=== PATIENT | female | born 1980 | race Two or more races ===

== ENCOUNTER 2017-10-25 11:01 | Emergency (ER) | payer MEDICAID ==
[~2017-10-25] VITALS: Ht 167.6 cm; Wt 89.4 kg
[2017-10-25 11:01] VITALS: BP 128/77
--- NOTE | 2017-10-25 11:08 | Emergency Room Report ---
History of Present Illness General Chief Complaint: Chest Pain Source: Patient, EMS Present Illness HPI Patient is a 36-year-old female presented after increased left-sided arm pain and chest discomfort. Patient states this felt like her prior myocardial infarction approximately 2 months ago. Patient had previous stent placement at [facility]. Onset of symptoms approximate 45 minutes ago. The patient states that she had been taking aspirin and Plavix and the statin. The patient previous been seen by EMS and an aspirin Allergies: Coded Allergies: No Known Allergies (Unverified , 10/25/17) Patient History Past Medical History: see triage record Now: No Reviewed Nursing Documentation: PMH: Agreed; PSxH: Agreed Review of Systems All Other Systems: negative except mentioned in HPI Physical Exam Vital Signs Date Time Temp Pulse Resp B/P (MAP) Pulse Ox O2 Delivery O2 Flow Rate FiO2 10/25/17 10:51 97.1 98 18 109/62 98 Room Air 97.2 Sp02 EP Interpretation: reviewed, normal General Appearance: normal inspection, well appearing, no apparent distress, alert, GCS 15 Head: atraumatic ENT: normal ENT inspection, hearing grossly normal, normal voice Neck: normal inspection, full range of motion, supple, no bony tend Respiratory: normal inspection, lungs clear, normal breath sounds, no respiratory distress, no retraction, no wheezing Cardiovascular #1: regular rate, rhythm, no edema Gastrointestinal: normal inspection, normal bowel sounds, non tender, soft, no guarding, no hernia Genitourinary: no CVA tenderness Musculoskeletal: normal inspection, back normal, normal range of motion Neurologic: normal inspection, alert, oriented x3, responsive, record label intern III-XII nml as tested, motor strength/tone normal, speech normal Psychiatric: normal inspection, judgement/insight normal, mood/affect normal Skin: normal inspection, normal color, no rash Medical Decision Making Diagnostic Impression: Primary Impression: Chest pain Additional Impression: ACS (acute coronary syndrome) ER Course patient presented for chest pain.Differential diagnosis included but was not limited to acute coronary syndrome, pulmonary embolism, pneumonia, aortic dissection, shingles, pneumothorax, aortic dissection, esophageal rupture, pericarditis. Because of complexity of patient's case laboratory testing and imaging studies were ordered.EKG interpreted by me showed ST segment elevation in the septal leads consistent with possible septal [place]. The patient was noted to have continued pain to the left upper extremity. The patient is given a heparin bolus.The initial EKG by paramedics as showed no elevation of the ST segments. Subsequent repeat EKG showed slight elevation of the ST . Patient had taken ASA with EMS as well as plavix. She was bolused IV heparin. The patient was discussed with Dr. Glaser at [facility] who agreed to accept the patient in transfer for higher level of care. Labs Test 10/25/17 11:04 White Blood Count 9.7 K/UL (4.8-10.8) Red Blood Count 4.79 M/UL (4.20-5.40) Hemoglobin 11.0 G/DL (12.0-16.0) Hematocrit 34.8 % (37.0-47.0) Mean Corpuscular Volume 73 FL (80-99) Mean Corpuscular Hemoglobin 22.9 PG (27.0-31.0) Mean Corpuscular Hemoglobin Concent 31.5 G/DL (32.0-36.0) Red Cell Distribution Width 14.1 % (11.6-14.8) Platelet Count 335 K/UL (150-450) Mean Platelet Volume 7.8 FL (6.5-10.1) Neutrophils (%) (Auto) 60.2 % (45.0-75.0) Lymphocytes (%) (Auto) 29.4 % (20.0-45.0) Monocytes (%) (Auto) 7.7 % (1.0-10.0) Eosinophils (%) (Auto) 1.9 % (0.0-3.0) Basophils (%) (Auto) 0.8 % (0.0-2.0) Prothrombin Time 10.0 SEC (9.30-11.50) Prothromb Time International Ratio 1.0 (0.9-1.1) Activated Partial Thromboplast Time 25 SEC (23-33) EKG Diagnostic Results Rate: normal Rhythm: NSR ST Segments: other - st elevation septal leads Last Vital Signs Date Time Temp Pulse Resp B/P (MAP) Pulse Ox O2 Delivery O2 Flow Rate FiO2 10/25/17 10:51 97.1 98 18 109/62 98 Room Air 97.2 Status: unchanged Disposition: XFER [facility] Condition: Serious Efrain Maguire MD Oct 25, 2017 11:08
[2017-10-25 11:13] LABS: BASOPHILS % (AUTO) 0.8 % (0.0-2.0); EOSINOPHILS % (AUTO) 1.9 % (0.0-3.0); HEMATOCRIT 34.8 % (37.0-47.0); LYMPHOCYTES % (AUTO) 29.4 % (20.0-45.0); MEAN CORPUSCULAR VOLUME 73 FL (80-99); MONOCYTES % (AUTO) 7.7 % (1.0-10.0); NEUTROPHILS % (AUTO) 60.2 % (45.0-75.0); PLATELET COUNT 335 K/UL (150-450); RED BLOOD COUNT 4.79 M/UL (4.20-5.40); RED CELL DISTRIBUTION WIDTH 14.1 % (11.6-14.8); WHITE BLOOD COUNT 9.7 K/UL (4.8-10.8)
[2017-10-25] MEDS ORDERED: PLAVIX75 MG ORAL (11:13)
[2017-10-25] MEDS ORDERED: ASPIR 8181 MG ORAL (11:13)
[2017-10-25] MEDS ORDERED: ATORVASTATIN CA20 MG ORAL (11:13)
[2017-10-25] MEDS ORDERED: HUMULIN N100 UNIT/4 SQ (11:13)
[2017-10-25] MEDS ORDERED: Heparin 5000 units/ml inj IV ONE (11:15)
[2017-10-25] MEDS ORDERED: Heparin 25,000u/D5W 500ml 500 ML IV SCH (11:15)
--- NOTE | 2017-10-25 11:30 | Diagnostic Imaging Report ---
INDICATION: Shortness of breath COMPARISON: None FINDINGS: Single frontal view demonstrates a normal cardiomediastinal silhouette. The lungs are clear. No pleural effusions. The visualized osseous structures are within normal limits. IMPRESSION: No acute cardiopulmonary disease.
[2017-10-25 11:33] LABS: ANION GAP 13 mmol/L (5-15); BLOOD UREA NITROGEN 12 mg/dL (7-18); CALCIUM 9.5 MG/DL (8.5-10.1); CARBON DIOXIDE 24 MMOL/L (21-32); CHLORIDE 102 MMOL/L (98-107); CREATININE 0.8 MG/DL (0.55-1.30); POTASSIUM 3.9 MMOL/L (3.5-5.1); SODIUM 139 MMOL/L (136-145)
[2017-10-25 11:46] LABS: ALANINE AMINOTRANSFERASE 22 U/L (12-78); ALBUMIN 3.8 G/DL (3.4-5.0); ALBUMIN/GLOBULIN RATIO 0.8 (1.0-2.7); ALKALINE PHOSPHATASE 90 U/L (46-116); ASPARTATE AMINO TRANSFERASE 15 U/L (15-37); BILIRUBIN,TOTAL 0.3 MG/DL (0.2-1.0); CREATINE KINASE 59 U/L (26-308)
[2017-10-25 11:53] VITALS: BP 126/77
--- NOTE | 2017-10-26 13:34 | Cardiology Report ---
APPROVED REPORT EKG Measurement Heart [id number] Normal sinus rhythm Septal infarct, age undetermined Abnormal ECG
== END 2017-10-25 11:50 | disposition short-term general hospital (02) ==
LOC: EDBD 11:01 → EMR 11:17
DX: I24.9 Acute ischemic heart disease, unspecified (principal)
CPT/HCPCS: 36415; 71045; 80053; 82550; 82553; 83880; 84484; 85025; 85610; 85730; 93005; 99285; J1644